=== PATIENT | male | born 2000 | race Two or more races ===

== ENCOUNTER 2023-08-29 14:16 | Emergency (ER) | payer BC ==
[~2023-08-29] VITALS: Ht 170.2 cm; Wt 63.5 kg
[2023-08-29 14:26] VITALS: BP 131/66; TEMP 97.8
[2023-08-29] MEDS ORDERED: POLY10DR OP (14:37)
[2023-08-29 14:46] VITALS: O2SAT 100
== END 2023-08-29 14:46 | disposition home or self-care (01) ==
LOC: ER 14:23
DX: H10.89 Other conjunctivitis (principal)